=== PATIENT | female | born 1945 | race Caucasian/White ===

== ENCOUNTER 2019-05-04 17:58 | Emergency (ER) | payer OTHER, MEDICAID ==
[~2019-05-04] VITALS: Ht 154.9 cm; Wt 67.1 kg
[~2019-05-04 17:58] MED LIST: B-121500 MCG PO; CHONDROITIN SUL; DEVIL S CLAW; GLUCOSAMINE500 M3 PO; HYDROXYCHLOROQ200 M3 PO; MAGOX 400241.3 MG PO; MET2.5 PO; METOPROLOL SUCC25 M1 PO; PREDNISONE2.5 MG PO; PROTONIX40 MG PO; [UNRECOGNIZED DRUG - CODE] PO
[2019-05-04 18:01] VITALS: Ht 154.9 cm; Wt 67.1 kg
[2019-05-04 21:04] VITALS: BP 143/75
== END 2019-05-04 21:04 | disposition home or self-care (01) ==
LOC: ED 17:58
DX: S63.502A Unspecified sprain of left wrist, initial encounter (principal); S20.212A Contusion of left front wall of thorax, initial encounter; Z88.2 Allergy status to sulfonamides; Z98.890 Other specified postprocedural states; W22.8XXA Striking against or struck by other objects, initial encounter; Y93.89 Activity, other specified; Y92.89 Other specified places as the place of occurrence of the external cause; Y99.8 Other external cause status